=== PATIENT | female | born 1940 | race African-American/Black ===

== ENCOUNTER 2021-08-28 19:15 | Emergency (ER) | payer OTHER ==
[~2021-08-28] VITALS: Ht 160 cm; Wt 72.6 kg
== END 2021-08-28 22:05 | disposition home or self-care (01) ==
LOC: ER 19:15
DX: M62.89 Other specified disorders of muscle (principal)

== ENCOUNTER 2021-08-31 08:30 | Emergency (ER) | payer OTHER ==
[~2021-08-31] VITALS: Ht 160 cm; Wt 77.1 kg
== END 2021-08-31 14:13 | disposition home or self-care (01) ==
LOC: ER 08:30
DX: M79.605 Pain in left leg (principal); M62.89 Other specified disorders of muscle